=== PATIENT | female | born 1940 | race Caucasian/White ===

== ENCOUNTER 2019-09-02 22:38 | Inpatient (IN) | payer MEDICARE ==
[~2019-09-02] VITALS: Ht 167.6 cm; Wt 60.3 kg
[2019-09-02] MEDS ORDERED: ENAL10TA PO (23:24)
[2019-09-02] MEDS ORDERED: NITR0.4T48 SL (23:24)
[2019-09-02] MEDS ORDERED: ASPI81TA31 PO (23:24)
[2019-09-02] MEDS ORDERED: VERA240C2 PO (23:24)
[2019-09-02] MEDS ORDERED: CITA10TA9 PO (23:24)
[2019-09-02] MEDS ORDERED: ATOR80TA PO (23:24)
[2019-09-02] MEDS ORDERED: IBUP-1953 PO (23:24)
[2019-09-03] MEDS ORDERED: MAGNESIUM HYDROXIDE 30 ML LIQUID UDC PO PRN (00:30)
[2019-09-03] MEDS ORDERED: CLONAZEPAM 0.5 MG TABLET PO PRN (00:30)
[2019-09-03] MEDS ORDERED: MAG HYDROX/AL HYDROX/SIMETH 30 ML LIQUID UDC PO PRN (00:30)
[2019-09-03] MEDS: TEMAZEPAM 7.5 MG CAPSULE PO PRN (01:40)
[2019-09-03 02:16] LABS: *BILIRUBIN,URIN NEGATIVE (NEGATIVE); *BLOOD, URINE NEGATIVE (NEGATIVE); *CLARITY,URINE CLEAR (CLEAR); *COLOR,URINE YELLOW (YELLOW); *KETONES,URINE NEGATIVE (NEGATIVE); *UROBILINOGEN,URINE 0.2 E.U./dl (NORMAL); LEUKOCYTE ESTERASE ,URINE 1+ (NEGATIVE); NITRITE, URINE NEGATIVE (NEGATIVE); UGLUCOSE NEGATIVE (NEGATIVE)
[2019-09-03 03:28] LABS: BACTERIA,URINE FEW /HPF (NONE SEEN); RBC,URINE 0-3 /HPF (0-3); SQUAMOUS EPITHELIAL CELL,UR FEW /HPF (NONE SEEN)
[2019-09-03 07:58] VITALS: BP 125/69
[2019-09-03] MEDS ORDERED: NITROGLYCERIN 0.4 MG/TAB BOTTLE SL PRN (13:30)
[2019-09-03] MEDS ORDERED: IBUPROFEN 400 MG TABLET PO PRN (13:30)
[2019-09-03] MEDS: CITALOPRAM 10 MG TABLET PO SCH (13:37)
[2019-09-03] MEDS: ASPIRIN 81 MG TAB.CHEW PO SCH (13:37)
[2019-09-03 15:16] VITALS: BP 155/65
[2019-09-03 20:33] VITALS: BP 140/60
[2019-09-03] MEDS: ATORVASTATIN 40 MG TABLET PO SCH (20:47)
[2019-09-04] MEDS: ACETAMINOPHEN 325 MG TABLET PO PRN (07:10)
[2019-09-04 07:52] VITALS: BP_SYST 114; BP_SYST 120; BP_DIAS 56; BP_DIAS 71
[2019-09-04] MEDS: ASPIRIN 81 MG TAB.CHEW PO SCH (08:49)
[2019-09-04] MEDS: CITALOPRAM 10 MG TABLET PO SCH (08:49)
[2019-09-04] MEDS: ENALAPRIL 10 MG TABLET PO SCH (08:50)
[2019-09-04] MEDS: VERAPAMIL SR 120 MG TABLET.SA PO SCH (08:50)
[2019-09-04 16:59] VITALS: BP 139/71
[2019-09-04 20:00] VITALS: BP 120/54
[2019-09-04] MEDS ORDERED: ATORVASTATIN 40 MG TABLET ONE (22:14)
[2019-09-04] MEDS: ATORVASTATIN 40 MG TABLET PO SCH (22:22)
[2019-09-04] MEDS: TEMAZEPAM 7.5 MG CAPSULE PO PRN (22:50)
[2019-09-05 07:30] VITALS: BP 139/66
[2019-09-05] MEDS: ASPIRIN 81 MG TAB.CHEW PO SCH (08:14)
[2019-09-05] MEDS: VERAPAMIL SR 120 MG TABLET.SA PO SCH (08:14)
[2019-09-05] MEDS: CITALOPRAM 10 MG TABLET PO SCH (08:15)
[2019-09-05] MEDS: ENALAPRIL 10 MG TABLET PO SCH (08:15)
[2019-09-05 13:00] VITALS: BP 101/56
[2019-09-05] MEDS: ATORVASTATIN 40 MG TABLET PO SCH (20:02)
[2019-09-05 20:13] VITALS: BP 144/64
[2019-09-05] MEDS: TEMAZEPAM 7.5 MG CAPSULE PO PRN (21:34)
[2019-09-06 07:30] VITALS: BP 166/67
[2019-09-06] MEDS: VERAPAMIL SR 120 MG TABLET.SA PO SCH (08:29)
[2019-09-06] MEDS: ASPIRIN 81 MG TAB.CHEW PO SCH (08:30)
[2019-09-06] MEDS: ENALAPRIL 10 MG TABLET PO SCH (08:30)
[2019-09-06] MEDS: CITALOPRAM 10 MG TABLET PO SCH (08:30)
[2019-09-06 15:23] VITALS: BP 134/64
[2019-09-06] MEDS: ATORVASTATIN 40 MG TABLET PO SCH (20:06)
[2019-09-06 20:14] VITALS: BP 144/62
[2019-09-06] MEDS: TEMAZEPAM 7.5 MG CAPSULE PO PRN (20:56)
[2019-09-07 07:30] VITALS: BP 130/65
[2019-09-07] MEDS: CITALOPRAM 10 MG TABLET PO SCH (08:49)
[2019-09-07] MEDS: VERAPAMIL SR 120 MG TABLET.SA PO SCH (08:50)
[2019-09-07] MEDS: ENALAPRIL 10 MG TABLET PO SCH (08:50)
[2019-09-07] MEDS: ASPIRIN 81 MG TAB.CHEW PO SCH (08:51)
[2019-09-07 15:31] VITALS: BP 118/58
[2019-09-07 19:57] VITALS: BP 121/58
[2019-09-07] MEDS: ATORVASTATIN 40 MG TABLET PO SCH (20:10)
[2019-09-07] MEDS: TEMAZEPAM 7.5 MG CAPSULE PO PRN (21:56)
[2019-09-08] MEDS: ACETAMINOPHEN 325 MG TABLET PO PRN (07:55)
[2019-09-08 08:03] VITALS: BP 124/62
[2019-09-08] MEDS: ASPIRIN 81 MG TAB.CHEW PO SCH (08:28)
[2019-09-08] MEDS: VERAPAMIL SR 120 MG TABLET.SA PO SCH (08:30)
[2019-09-08] MEDS: ENALAPRIL 10 MG TABLET PO SCH (08:30)
[2019-09-08] MEDS: CITALOPRAM 20 MG TABLET PO SCH (08:36)
[2019-09-08] MEDS ORDERED: CITALOPRAM 10 MG TABLET PO SCH (09:00)
[2019-09-08 16:23] VITALS: BP 133/64
[2019-09-08 20:54] VITALS: BP 14/76
[2019-09-08] MEDS: ATORVASTATIN 40 MG TABLET PO SCH (21:13)
[2019-09-08] MEDS: TEMAZEPAM 7.5 MG CAPSULE PO PRN (21:54)
[2019-09-09 07:30] VITALS: BP 134/62
[2019-09-09] MEDS: ASPIRIN 81 MG TAB.CHEW PO SCH (08:18)
[2019-09-09] MEDS: CITALOPRAM 20 MG TABLET PO SCH (08:18)
[2019-09-09] MEDS: ENALAPRIL 10 MG TABLET PO SCH (08:19)
[2019-09-09] MEDS: VERAPAMIL SR 120 MG TABLET.SA PO SCH (08:25)
[2019-09-09 17:06] VITALS: BP 112/55
[2019-09-09] MEDS: ATORVASTATIN 40 MG TABLET PO SCH (20:14)
[2019-09-09 20:40] VITALS: BP 138/47
[2019-09-09] MEDS: TEMAZEPAM 7.5 MG CAPSULE PO PRN (21:06)
[2019-09-10 07:30] VITALS: BP 140/75
[2019-09-10] MEDS: VERAPAMIL SR 120 MG TABLET.SA PO SCH (08:30)
[2019-09-10] MEDS: ASPIRIN 81 MG TAB.CHEW PO SCH (08:31)
[2019-09-10] MEDS: ENALAPRIL 10 MG TABLET PO SCH (08:31)
[2019-09-10] MEDS: CITALOPRAM 20 MG TABLET PO SCH (08:31)
[2019-09-10 15:34] VITALS: BP 96/55
[2019-09-10] MEDS: ATORVASTATIN 40 MG TABLET PO SCH (20:09)
[2019-09-10 20:10] VITALS: BP 112/50
[2019-09-11] MEDS: ACETAMINOPHEN 325 MG TABLET PO PRN ×2 (03:38→13:28)
[2019-09-11 07:30] VITALS: BP 156/70
[2019-09-11] MEDS: ENALAPRIL 10 MG TABLET PO SCH (08:26)
[2019-09-11] MEDS: CITALOPRAM 20 MG TABLET PO SCH (08:26)
[2019-09-11] MEDS: VERAPAMIL SR 120 MG TABLET.SA PO SCH (08:26)
[2019-09-11] MEDS: ASPIRIN 81 MG TAB.CHEW PO SCH (08:26)
[2019-09-11 15:09] VITALS: BP 133/58
[2019-09-11] MEDS: ATORVASTATIN 40 MG TABLET PO SCH (20:09)
[2019-09-11 20:18] VITALS: BP 146/83
[2019-09-11] MEDS: TEMAZEPAM 7.5 MG CAPSULE PO PRN (21:05)
[2019-09-12] MEDS: ACETAMINOPHEN 325 MG TABLET PO PRN (04:57)
[2019-09-12 07:30] VITALS: BP 135/68
[2019-09-12 08:08] LABS: BASOPHILS # (AUTO) 0.1 K/uL (0.0-8.0); EOSINOPHILS # (AUTO) 0.2 K/uL (0.0-0.7); EOSINOPHILS % (AUTO) 1.7 % (0.0-7.0); HEMATOCRIT 36.7 % (31.2-41.9); HEMOGLOBIN 12.2 g/dL (10.9-14.3); LYMPHOCYTES # (AUTO) 3.6 K/uL (20.0-40.0); LYMPHOCYTES % (AUTO) 39.7 % (20.5-51.5); MEAN CORPUSCULAR HEMOGLOBIN 31.3 uug (24.7-32.8); MEAN CORPUSCULAR HGB CONC 33 g/dL (32.3-35.6); MEAN CORPUSCULAR VOLUME 94.4 fL (75.5-95.3); MONOCYTES # (AUTO) 0.8 K/uL (2.0-10.0); MONOCYTES % (AUTO) 8.9 % (0.0-11.0); NEUTROPHILS # (AUTO) 4.5 K/uL (1.8-8.9); NEUTROPHILS % (AUTO) 48.7 % (38.5-71.5); PLATELET COUNT (AUTO) 290 K/uL (179-408); RED BLOOD CELL COUNT(AUTO) 3.88 MIL/uL (3.63-4.92); WHITE BLOOD COUNT (AUTO) 9.2 K/uL (3.8-11.8)
[2019-09-12 08:09] LABS: MAGNESIUM 1.8 mg/dL (1.8-2.4); PHOSPHOROUS 3.5 mg/dL (2.5-4.9); POTASSIUM 4.5 mmol/L (3.5-5.1)
[2019-09-12] MEDS: CITALOPRAM 20 MG TABLET PO SCH (08:39)
[2019-09-12] MEDS: ASPIRIN 81 MG TAB.CHEW PO SCH (08:39)
[2019-09-12] MEDS: ENALAPRIL 10 MG TABLET PO SCH (08:39)
[2019-09-12 08:40] VITALS: BP 155/68
[2019-09-12] MEDS: VERAPAMIL SR 120 MG TABLET.SA PO SCH (08:40)
== END 2019-09-12 13:17 | disposition home or self-care (01) | DRG 885 ==
LOC: ER 22:42 → GPS 23:25
PROVIDERS: ADMIT Psychiatry & Neurology Psychiatry
DX: F33.2 Major depressive disorder, recurrent severe without psychotic features (principal); I20.1 Angina pectoris with documented spasm; I10 Essential (primary) hypertension; E78.5 Hyperlipidemia, unspecified; F10.20 Alcohol dependence, uncomplicated; Y90.9 Presence of alcohol in blood, level not specified; Z79.82 Long term (current) use of aspirin; Z79.899 Other long term (current) drug therapy; I44.7 Left bundle-branch block, unspecified
CPT/HCPCS: 36415; 71045; 83735; 84100; 85025; 87086; 93005; A4663